=== PATIENT | female | born 1955 | race Caucasian/White ===

== ENCOUNTER 2016-11-19 21:30 | Emergency (ER) | payer MEDICARE, OTHER ==
[2016-11-19] MEDS ORDERED: MAG HYDROX/AL HYDROX/SIMETH 30 ML UDC PO STA (21:58)
[2016-11-19] MEDS ORDERED: ONDANSETRON ODT 4 MG TABLET TL STA (21:58)
[2016-11-19] MEDS ORDERED: LIDOCAINE VISCOUS 2% 15 ML UDC MM STA (21:58)
[2016-11-19] MEDS ORDERED: FAMOTIDINE 20 MG TABLET PO STA (21:58)
[2016-11-19] MEDS ORDERED: LIDOCAINE VISCOUS 2% 15 ML UDC MM ONE (22:08)
[2016-11-19] MEDS ORDERED: MAG HYDROX/AL HYDROX/SIMETH 30 ML UDC ONE (22:08)
[2016-11-19] MEDS ORDERED: ONDANSETRON ODT 4 MG TABLET ONE (22:08)
[2016-11-19] MEDS ORDERED: FAMOTIDINE 20 MG TABLET ONE (22:08)
[2016-11-19 22:12] LABS: BASOPHILS # (AUTO) 0.1 10^3/uL (0.0-0.1); BASOPHILS % (AUTO) 0.7 %; EOSINOPHILS % (AUTO) 0.4 %; HCT - HEMATOCRIT 43.5 % (37.0-47.0); HGB - HEMOGLOBIN 14.8 g/dL (12.0-16.0); LYMPHOCYTES % (AUTO) 9.8 %; MEAN CORPUSCULAR HEMOGLOBIN 33.1 pg (27.0-31.0); MEAN CORPUSCULAR VOLUME 97.5 fL (81.0-99.0); MEAN PLATELET VOLUME 8.9 fL (7.9-10.8); MONOCYTES # (AUTO) 0.6 10^3/uL (0.0-1.0); NEUTROPHILS # (AUTO) 8.2 10^3/uL (1.5-6.6); NEUTROPHILS % (AUTO) 83.1 %; RED BLOOD COUNT 4.46 10^6/uL (4.20-5.40); RED CELL DISTRIBUTION WIDTH 12.7 % (12.0-15.0); UNCORRECTED WHITE BLOOD COUNT 9.8 x10^3/uL; WHITE BLOOD COUNT 9.8 x10^3/uL (4.8-10.8)
[2016-11-19 22:29] LABS: ALBUMIN/GLOBULIN RATIO 1.4 (1.0-2.2); CALCIUM 9.6 mg/dL (8.5-10.3); CREATININE 0.6 mg/dL (0.4-1.0); POTASSIUM 3.5 mmol/L (3.5-5.0); TOTAL PROTEIN 6.9 g/dL (6.7-8.2)
--- NOTE | 2016-11-19 22:30 | ED Physician Documentation ---
PD HPI CHEST PAIN - Stated complaint Stated Complaint: INDIGESTION - Chief complaint Chief Complaint: Abd Pain - History obtained from History obtained from: Patient, Friend - History of Present Illness Timing - onset: How many hours ago (10) Timing - onset during: Rest Timing - details: Gradual onset, Still present Quality: Indigestion Location: Substernal, Right chest Associated symptoms: Nausea. No: Shortness of air, Diaphoresis, Vomiting, Feeling faint / dizzy Similar symptoms before: Work up / diagnostics, Treatment Recently seen: Not recently seen - Additional information Additional information: Patient is a 60 year old female with a history of anxiety, depression, fibromyalgia and gerd who is presenting to the emergency department for epigastric and substernal pain. Patient states that she feels like her GERD in the past for which she takes a GI cocktail and percocet. Patient states that she moved in with her brother and has been drinking beer almost everyday. Patient states it gives her stomach pain for which she has been taking nsaids. Review of Systems Constitutional: denies: Fever, Chills Eyes: denies: Decreased vision Ears: denies: Ear pain, Drainage/discharge Nose: denies: Congestion Throat: denies: Sore throat Cardiac: reports: Chest pain / pressure Respiratory: denies: Dyspnea GI: reports: Nausea. denies: Vomiting, Constipation, Diarrhea : denies: Dysuria, Frequency Skin: denies: Rash, Lesions Neurologic: denies: Generalized weakness, Focal weakness, Numbness Psychiatric: reports: Anxiety Immunocompromised: denies: Immunocompromised PD PAST MEDICAL HISTORY - Past Medical History Past Medical History: Yes Cardiovascular: Hypertension Respiratory: Asthma, COPD, Sleep apnea Neuro: None GI: GERD Psych: Depression, Anxiety Musculoskeletal: Osteoarthritis, Chronic back pain - Past Surgical History General: Cholecystectomy Ortho: Carpal Tunnel surgery Derm: Other - Present Medications Home Medications: Ambulatory Orders Medication Instructions Recorded Confirmed Buspirone HCl 15 mg PO BID 11/19/16 11/19/16 Cetirizine [ZyrTEC] 10 mg PO DAILY 11/19/16 11/19/16 Omeprazole 20 mg PO DAILY #30 capsule. 11/19/16 Omeprazole [PriLOSEC] 10 mg PO BID 11/19/16 11/19/16 Risperidone [Risperdal] 0.25 mg PO BID 11/19/16 11/19/16 - Allergies Allergies/Adverse Reactions: Allergies Allergy/AdvReac Type Severity Reaction Status Date / Time No Known Drug Allergies Allergy Verified 11/19/16 21:36 - Social History Does the pt smoke?: Yes Smoking Status: Current every day smoker ETOH Use: Beer Does the pt have substance abuse?: Yes Substance Use and Type: Marijuana - Immunizations Immunizations are current?: No PD ED PE NORMAL - Vitals Vital signs reviewed: Yes - General General: Alert and oriented X 3, No acute distress - HEENT HEENT: Atraumatic, PERRL, Pharynx benign - Neck Neck: Supple, no meningeal sign, No JVD - Cardiac Cardiac: RRR, No murmur - Respiratory Respiratory: No respiratory distress, Clear bilaterally - Abdomen Abdomen: Soft - Derm Derm: Normal color, Warm and dry, No rash - Extremities Extremities: No deformity, No edema, No calf tenderness / cord - Neuro Neuro: Alert and oriented X 3, No motor deficit, No sensory deficit, Normal speech - Psych Psych: Normal mood, Normal affect PD ED PE EXPANDED - Abdomen Abdomen: Tender to palpation, Epigastric Results - Vitals Vitals: Vital Signs - 24 hr 11/19/16 11/19/16 11/19/16 21:33 21:37 23:02 Temperature 36.5 C Heart Rate 76 69 78 Respiratory 20 18 20 Rate Blood Pressure 177/106 H 155/108 H O2 Saturation 94 97 97 Oxygen O2 Source Room air - EKG (time done) 2145 Rate: Rate (enter#) (68) Rhythm: NSR [place]: Normal Intervals: Normal AR QRS: Normal Ischemia: Normal ST segments Compare to prior EKG: Old EKG unavailable - Labs Labs: Laboratory Tests 11/19/16 11/19/16 11/19/16 22:06 22:06 22:06 WBC 9.8 RBC 4.46 Hgb 14.8 Hct 43.5 MCV 97.5 MCH 33.1 H MCHC 34.0 RDW 12.7 Plt Count 212 MPV 8.9 Neut # 8.2 H Lymph # 1.0 L [place] # 0.6 Eos # 0.0 Baso # 0.1 Absolute Nucleated RBC 0.00 Nucleated RBC % 0.0 Sodium 138 Potassium 3.5 Chloride 98 L Carbon Dioxide 29 Anion Gap 11.0 BUN 14 Creatinine 0.6 Estimated GFR (MDRD) 103 Glucose 122 H Calcium 9.6 Total Bilirubin 1.0 AST 31 ALT 28 Alkaline Phosphatase 83 Troponin I < 0.04 B-Natriuretic Peptide Total Protein 6.9 Albumin 4.0 Globulin 2.9 Albumin/Globulin Ratio 1.4 Lipase 14 L 11/19/16 22:06 WBC RBC Hgb Hct MCV MCH MCHC RDW Plt Count MPV Neut # Lymph # [place] # Eos # Baso # Absolute Nucleated RBC Nucleated RBC % Sodium Potassium Chloride Carbon Dioxide Anion Gap BUN Creatinine Estimated GFR (MDRD) Glucose Calcium Total Bilirubin AST ALT Alkaline Phosphatase Troponin I B-Natriuretic Peptide 42 Total Protein Albumin Globulin Albumin/Globulin Ratio Lipase PD MEDICAL DECISION MAKING - ED course Complexity details: reviewed old records, reviewed results, re-evaluated patient , considered differential, d/w patient ED course: Patient was seen and examined at bedside. labs were drawn. ekg was performed and within normal limits. patient was treated with pepcid, maalox and viscous lidocaine with mild relief. Patient's diagnostics were within normal limits. patient had a time and heart score of 1. Patient required no further work up and was stable for discharge with outpatient follow up. Departure - Departure Disposition: 01 Home, Self Care Clinical Impression: Gastritis Condition: Good Instructions: ED Gastritis Follow-Up: MARYSE MITCHELL MD [Primary Care Provider] - Within 1 week Prescriptions: Omeprazole 20 mg PO DAILY #30 capsule. Comments: Your diagnostics today were within normal limits. You should refrain from taking any NSAIDS (alieve, ibufrofen, naproxen, etc) and should restrain from drinking alcohol as they can both make your symptoms worse. You should take the omeprazole daily and take tums or maalox for breakthrough pain. You can also take tylenol as needed for pain. YOu should follow up with your pmd as an upper endoscopy might be necessary. You may return to the emergency department at any time for new, worsening or uncontrollable symptoms.
[2016-11-19] MEDS ORDERED: ACETAMINOPHEN 500 MG TABLET PO STA (22:46)
[2016-11-19] MEDS ORDERED: ACETAMINOPHEN 500 MG TABLET PO ONE (22:52)
[2016-11-19 23:03] VITALS: BP 155/108
== END 2016-11-19 23:03 | disposition home or self-care (01) ==
LOC: ED 21:30
DX: I10 Essential (primary) hypertension (principal); F17.200 Nicotine dependence, unspecified, uncomplicated
CPT/HCPCS: 36415; 80053; 83690; 83880; 84484; 85025; 93005; 99283; 99284; A9270; Q0162

== ENCOUNTER 2017-09-25 14:41 | Outpatient (CLI) | payer MEDICARE, MEDICAID ==
--- NOTE | 2017-09-25 16:01 | XRAY Report ---
Procedure Date: 09/25/2017 Accession Number: [id number] / [id number] Procedure: XR - Chest 2 View X-Ray CPT Code: 05384 FULL RESULT: EXAM: CHEST RADIOGRAPHY EXAM DATE: 09/25/2017 02:50 PM. CLINICAL HISTORY: History of asthma COMPARISON: None. TECHNIQUE: 2 views. FINDINGS: Lungs/Pleura: Hyperexpanded. No focal consolidation or evidence of edema. No bronchial wall thickening. No pleural effusion or pneumothorax. Mediastinum: Normal cardiomediastinal contour. Other: Minimal right convex curvature of the midthoracic spine. Surgical clips in the right upper quadrant. IMPRESSION: 1. Hyperexpansion, which may relate to given history of asthma. 2. No acute cardiopulmonary abnormality. RADIA
== END 2017-09-25 14:42 | disposition home or self-care (01) ==
LOC: DI 14:41
PROVIDERS: ATTEND Internal Medicine
DX: J45.909 Unspecified asthma, uncomplicated (principal); R09.02 Hypoxemia; R06.00 Dyspnea, unspecified; R60.0 Localized edema; M79.605 Pain in left leg; M79.604 Pain in right leg
CPT/HCPCS: 71046

== ENCOUNTER 2017-12-07 09:22 | Outpatient (CLI) | payer MEDICARE, MEDICAID ==
[2017-12-07] MEDS ORDERED: ALBUTEROL NEB 2.5 MG/3 ML INH ONE (10:00)
--- NOTE | 2017-12-07 15:57 | XRAY Report ---
Reason: AC JOINT NECK PAIN Procedure Date: 12/07/2017 Accession Number: [id number] / [id number] Procedure: XR - Shoulder 3 View LT CPT Code: FULL RESULT: EXAM: LEFT SHOULDER RADIOGRAPHY EXAM DATE: 12/07/2017 11:56 AM. CLINICAL HISTORY: AC JOINT NECK PAIN. COMPARISON: None. TECHNIQUE: 3 views. FINDINGS: Bones: Normal. No fracture or bone lesion. Joints: AC joint hypertrophy. Glenoid spur. Glenohumeral joint normal Soft tissues: The visualized hemithorax is unremarkable. No soft tissue swelling. IMPRESSION: AC joint DJD RADIA
--- NOTE | 2017-12-07 17:53 | XRAY Report ---
Reason: AC JOINT NECK PAIN Procedure Date: 12/07/2017 Accession Number: [id number] / [id number] Procedure: XR - Cervical Spine 2 View CPT Code: FULL RESULT: EXAM: CERVICAL SPINE RADIOGRAPHY EXAM DATE: 12/07/2017 11:56 AM. CLINICAL HISTORY: AC JOINT NECK PAIN. COMPARISONS: None. TECHNIQUE: 3 views. FINDINGS: Alignment: Normal. No spondylolisthesis or scoliosis. Bones: The cervical vertebral bodies and posterior elements are well visualized from the skull base through C7-T1. No fractures or bone lesions. Disks: There is mild disk space narrowing at C4-C5. There is moderate disk space narrowing at C5-C6 and C6-C7. There are moderate anterior osteophytes. Facets: Mild degenerative disease. Soft Tissues: No prevertebral soft tissue swelling. The visualized lung apices are clear. The lateral masses appear symmetric. IMPRESSION: Moderate cervical spondylosis RADIA
== END 2017-12-07 09:23 | disposition home or self-care (01) ==
LOC: RT 09:22 → DI 09:23
PROVIDERS: ATTEND Nurse Practitioner Family
DX: M19.012 Primary osteoarthritis, left shoulder (principal); M47.812 Spondylosis without myelopathy or radiculopathy, cervical region; J44.1 Chronic obstructive pulmonary disease with (acute) exacerbation
CPT/HCPCS: 72040; 94060; 94664